=== PATIENT | male | born 1945 | race Caucasian/White ===

== ENCOUNTER 2017-02-19 06:35 | Observation (INO) | payer BC ==
[2017-02-14 10:12] LABS: BASOPHILS 0.4 %; BASOPHILS ABSOLUTE 0.02 10/3/uL (0.0-0.16); EOSINOPHILS 3.9 %; EOSINOPHILS ABSOLUTE 0.18 10/3/uL (0.0-0.53); HEMATOCRIT 30.1 % (40.0-51.0); HEMOGLOBIN 9.9 g/dL (13.6-17.8); IMMATURE GRANULOCYTES 0.2 %; IMMATURE GRANULOCYTES ABSOLUTE 0.01 10/3/uL (0.0-0.11); LYMPHOCYTES ABSOLUTE 0.98 10/3/uL (0.67-4.30); MANUAL DIFF NO %; MEAN CORPUS HGB CONC 32.9 g/dL (32.0-36.0); MEAN CORPUSCULAR HEMOGLOB 29.9 pg (26.0-34.0); MEAN CORPUSCULAR VOLUME 90.9 fL (80-100); MEAN PLATELET VOLUME 10.9 fL (9.2-13.0); MONOCYTES 7.7 %; MONOCYTES ABSOLUTE 0.36 10/3/uL (0.21-1.20); NEUTROPHILS 66.8 %; NEUTROPHILS ABSOLUTE 3.11 10/3/uL (2.02-8.40); PLATELET COUNT 161 10/3/uL (150-400); RBC DISTRIBUTION WIDTH 14.2 % (12.0-16.0); RED CELL COUNT 3.31 10/6/uL (4.7-6.1); WHITE BLOOD CELLS 4.7 10/3/uL (4.5-10.5)
[2017-02-14 10:45] LABS: A/G RATIO 1.1 (0.7-1.9); ALBUMIN 3.3 G/DL (3.5-5.0); ALKALINE PHOSPHATASE 63 U/L (45-117); BUN (BLOOD UREA NITROGEN) 27 MG/DL (6-23); CALCIUM, SERUM 9.1 MG/DL (8.5-10.4); CHLORIDE, SERUM 108 MMOL/L (96-112); CO2 (CARBON DIOXIDE) 29 MMOL/L (24-34); CREATININE 1.88 MG/DL (0.70-1.30); GFR AFRICAN AMERICAN 40 ML/MIN (>=60); GFR NON AFRICAN AMERICAN 35 ML/MIN (>=60); GLOBULIN 2.9 G/DL (2.5-4.1); GLUCOSE, SERUM 102 MG/DL (60-99); POTASSIUM, SERUM 4.2 MMOL/L (3.5-5.3); SGOT(AST) 17 U/L (5-40); SGPT(ALT) 15 U/L (5-65); SODIUM, SERUM 143 MMOL/L (135-148); TOTAL BILIRUBIN 0.4 MG/DL (0-1.2); TOTAL PROTEIN 6.2 G/DL (6.0-8.5)
--- NOTE | ~2017-02-19 | HP ---
History And Physical [facility] [place]. [address] NAME: DEANNE GRIMM : 43 STATUS : ADM Dayana PAT#: [id number] AGE: 71 ADM/REG DATE : 02/19/17 MR#: [id number] REPORT SERV DATE: 02/20/17 DICTATED BY: SHWETA VU DATE: 02/20/17 REPORT STATUS : Draft TRANSCRIBED BY: MODL DATE: 02/20/17 DATE OF ADMISSION: 02/19/2017 CHIEF COMPLAINT: BPH with obstruction. HISTORY OF PRESENT ILLNESS: Mr. Grimm is a 71-year-old with recurrent bouts of overt urinary retention despite maximal medical therapy for BPH. He is admitted for TURP. He has been cleared by Cardiology. He has not had problems with urinary tract infections or gross hematuria. PAST MEDICAL HISTORY: Diabetes, hypertension, coronary artery disease, congestive heart failure, bowel resection, cholecystectomy, CABG x3, chronic kidney disease. SOCIAL HISTORY: No alcohol, tobacco, or illicit drugs. . FAMILY HISTORY: No family history of malignancy. ALLERGIES: QUESTION REOPRO. MEDICATIONS: Atorvastatin, tamsulosin, carvedilol, insulin, spironolactone, Nitrostat, isosorbide mononitrate, Repatha, Entresto, pantoprazole, aspirin, vitamin D. REVIEW OF SYSTEMS: No chest pain, fevers, chills, nausea, vomiting, episode of overt retention earlier this year that resolved after five days catheter placement. PHYSICAL EXAMINATION: VITAL SIGNS: 205 pounds, 133/75, pulse 55, respirations 20, 97.1. GENERAL: A pleasant 71-year-old, in no acute distress. HEENT: Sclerae anicteric. LUNGS: Clear. HEART: Regular rhythm. Well-healed sternotomy scar. ABDOMEN: Soft, nontender, nondistended. No palpable mass. No rebound or guarding. No right or left CVA tenderness. RECTAL: Digital rectal exam from the office showed a 50-100 g prostate, palpably benign. 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 PLAN: Proceed with TURP. The risk of bleeding, infection, persistent retention, postop urge incontinence, and bladder neck contracture were discussed. He agrees to proceed. Perioperative Levaquin was given. [facility] History And Physical [address] [place]. [address] NAME: DEANNE GRIMM : 43 STATUS : ADM Dayana PAT#: [id number] AGE: 71 ADM/REG DATE : 02/19/17 MR#: [id number] REPORT SERV DATE: 02/20/17 DICTATED BY: SHWETA VU DATE: 02/20/17 REPORT STATUS : Draft TRANSCRIBED BY: DONNY DATE: 02/20/17 Shweta Vu M.D. / [id number] CC: Wilbur Cordova M.D.
--- NOTE | ~2017-02-19 | OP ---
Record Of Operation [facility] [address] [place]. [address] NAME: DEANNE GRIMM : 43 STATUS : ADM Dayana PAT#: [id number] AGE: 71 ADM/REG DATE : 02/19/17 MR#: [id number] REPORT SERV DATE: 02/19/17 DICTATED BY: SHWETA VU DATE: 02/19/17 REPORT STATUS : Draft TRANSCRIBED BY: MODL DATE: 02/19/17 DATE OF PROCEDURE: 02/19/2017 PREOPERATIVE DIAGNOSIS: Benign prostatic hyperplasia obstruction. POSTOPERATIVE DIAGNOSIS: Benign prostatic hyperplasia obstruction. PROCEDURE PERFORMED: Transurethral resection of prostate. SURGEON: Shweta Vu M.D. ANESTHESIA: General. COMPLICATIONS: None. DRAINS: A 22-[place] three-way Worthington catheter. SPECIMEN: Prostate chips. ESTIMATED BLOOD LOSS: 200 mL. INDICATIONS: Mr. Grimm is a 71-year-old with recurrent bouts of urinary retention secondary to BPH. Prostate is estimated at [address] He presents for TURP understanding the risks of bleeding, infection, need for recurrent retention, postop urge incontinence and stricture formation. TECHNIQUE: Levaquin was given preop. He was brought to the operating room. General anesthesia was administered. The genitals and perineum were prepped and draped in low lithotomy position in sterile fashion. Rigid cystoscopy was performed. The urethra was normal. There was trilobar BPH with a moderate median lobe. Ureteral orifices were obscured by the median lobe. No tumor or stone in the bladder. There was moderate trabeculation. The cystoscope was removed. I calibrated the urethra to 24-S[place]an and dilated it to 28-[place]an. A 26-[place] resectoscope sheath was placed. Glycine was used for irrigation. Transurethral electrosurgical resection of prostate was performed. First I resected the median lobe tissue using care to avoid the ureteral orifices. Resection was carried out from the midline from the bladder neck down to the verumontanum. Next, the right and left lateral lobes were resected. Approximate resection time was an hour and 10 minutes. Chips were evacuated with the Ellik. I fulgurated the bed of resection for hemostasis. There was minimal anterior resection performed at the end of the case due to bleeding anteriorly. This yielded an unobstructed view from the verumontanum through the bladder neck. I inspected the bladder, no chip remained. I placed a 22-[place] three-way Worthington catheter with 40 mL in the balloon. The catheter irrigated well. Was placed on gentle traction. He was taken to the recovery room in satisfactory condition. POSTOP PLAN: Plan is for 23 hours of CBI and trial of void in three to four days indication. Record Of Operation [address] [place]. [address] NAME: DEANNE GRIMM : 43 STATUS : ADM Dayana PAT#: [id number] AGE: 71 ADM/REG DATE : 02/19/17 MR#: [id number] REPORT SERV DATE: 02/19/17 DICTATED BY: SHWETA VU DATE: 02/19/17 REPORT STATUS : Draft TRANSCRIBED BY: DONNY DATE: 02/19/17 [facility] Shweta Vu M.D. / [id number] CC: Wilbur Cordova M.D.
[~2017-02-19 06:35] MED LIST: ABX PO; ACCU10 PO; ASA5GR PO; ASAB PO; COREG12 PO; COREG25 PO; FISH OIL1200 MG PO; FLOMAX4 PO; HALF81 PO; IMDUR30 PO; IMDUR60 PO; JANUVIA100 MG PO; L80 PO; LEVEMIR SC; LIPITOR80 MG PO; LORTAB 5 PO; MAGOX4 PO; NITROSTAT0.4 MG SL; NOVOLOG SC; PRILO PO; PRIN10 PO; PROTONIX PO; REPATHA 140MG/ML IM; REPATHA SC; SACU1TAB PO; SACU1TAB4 PO; SPIRO25 PO; VITAMIN D2000 UNIT PO; ZANTAC 150 PO
[2017-02-20 06:36] LABS: HEMATOCRIT 27.5 % (40.0-51.0); HEMOGLOBIN 8.9 g/dL (13.6-17.8)
[2017-02-20] MEDS ORDERED: CIP5 PO (10:15)
[2017-02-20] MEDS ORDERED: NORCO1 TA1 PO (10:16)
== END 2017-02-20 15:45 | disposition home or self-care (01) ==
LOC: SDC 06:35 → 4SO 13:04
PROVIDERS: Urology
PROC: 0VT08ZZ Resection of Prostate, Via Natural or Artificial Opening Endoscopic (ICD-10-PCS; principal; 2017-02-19 07:45)
DX: C61 Malignant neoplasm of prostate (principal); N40.1 Benign prostatic hyperplasia with lower urinary tract symptoms; R33.9 Retention of urine, unspecified; N13.8 Other obstructive and reflux uropathy; I25.10 Atherosclerotic heart disease of native coronary artery without angina pectoris; I42.0 Dilated cardiomyopathy; I50.9 Heart failure, unspecified; E78.5 Hyperlipidemia, unspecified; I25.2 Old myocardial infarction; N18.3 Chronic kidney disease, stage 3 (moderate); Z79.82 Long term (current) use of aspirin; Z79.4 Long term (current) use of insulin; Z79.899 Other long term (current) drug therapy; Z95.1 Presence of aortocoronary bypass graft; E11.22 Type 2 diabetes mellitus with diabetic chronic kidney disease; I13.0 Hypertensive heart and chronic kidney disease with heart failure and stage 1 through stage 4 chronic kidney disease, or unspecified chronic kidney disease; Z88.8 Allergy status to other drugs, medicaments and biological substances; Z90.49 Acquired absence of other specified parts of digestive tract
CPT/HCPCS: 80053; 82962; 84295; 85014; 85018; 85025; 88305; 88341; 88342; 88344; 93005; A9270-GY; G0378; J2405; J2550; J2710; J3010

== ENCOUNTER 2017-07-23 08:47 | Emergency (ER) | payer BC ==
[~2017-07-23 08:47] MED LIST changes: +CIP5 PO; +NORCO1 TA1 PO
[2017-07-23 10:20] LABS: BASOPHILS 0.1 %; BASOPHILS ABSOLUTE 0.01 10/3/uL (0.0-0.16); EOSINOPHILS 2.6 %; EOSINOPHILS ABSOLUTE 0.18 10/3/uL (0.0-0.53); ER CBC TAT 0 Hrs 05 Mins; HEMATOCRIT 32.9 % (40.0-51.0); IMMATURE GRANULOCYTES 0.4 %; IMMATURE GRANULOCYTES ABSOLUTE 0.03 10/3/uL (0.0-0.11); LYMPHOCYTES 17.1 %; LYMPHOCYTES ABSOLUTE 1.19 10/3/uL (0.67-4.30); MANUAL DIFF NO %; MEAN CORPUS HGB CONC 33.4 g/dL (32.0-36.0); MEAN CORPUSCULAR HEMOGLOB 30.6 pg (26.0-34.0); MEAN CORPUSCULAR VOLUME 91.4 fL (80-100); MEAN PLATELET VOLUME 10.6 fL (9.2-13.0); MONOCYTES 5.3 %; MONOCYTES ABSOLUTE 0.37 10/3/uL (0.21-1.20); NEUTROPHILS 74.5 %; NEUTROPHILS ABSOLUTE 5.16 10/3/uL (2.02-8.40); PLATELET COUNT 181 10/3/uL (150-400); WHITE BLOOD CELLS 6.9 10/3/uL (4.5-10.5)
[2017-07-23 10:27] LABS: INTERNATIONAL NORMAL RATI 1.1 UNITS (-); PARTIAL THROMBO TIME 30.5 SEC (22.5-37.2); PROTIME (NOT ORD) 14.2 SEC (12.0-14.5)
[2017-07-23 10:37] LABS: BUN (BLOOD UREA NITROGEN) 27 MG/DL (6-23); CHEST PAIN PROFILE TAT 0 Hrs 22 Mins; CHLORIDE, SERUM 108 MMOL/L (96-112); CO2 (CARBON DIOXIDE) 25 MMOL/L (24-34); CREATININE 1.95 MG/DL (0.70-1.30); GFR AFRICAN AMERICAN 38 ML/MIN (>=60); GFR NON AFRICAN AMERICAN 33 ML/MIN (>=60); GLUCOSE, SERUM 122 MG/DL (60-99); SODIUM, SERUM 141 MMOL/L (135-148); TROPONIN I 0.03 NG/ML (<0.05)
== END 2017-07-23 13:25 | disposition home or self-care (01) ==
LOC: ER 08:47
PROVIDERS: Hospitalist
DX: I48.91 Unspecified atrial fibrillation (principal); I50.9 Heart failure, unspecified; I25.2 Old myocardial infarction; Z95.5 Presence of coronary angioplasty implant and graft; E11.9 Type 2 diabetes mellitus without complications; Z88.8 Allergy status to other drugs, medicaments and biological substances; Z79.4 Long term (current) use of insulin; Z79.82 Long term (current) use of aspirin; Z79.899 Other long term (current) drug therapy
CPT/HCPCS: 71010; 80048; 83735; 83880; 84484; 85025; 85610; 85730; 93005; 96374; 99285; A9270-GY